=== PATIENT | female | born 1985 | race Asian ===

== ENCOUNTER 2018-12-30 09:38 | Inpatient (IN) | payer OTHER ==
[~2018-12-30] VITALS: Ht 157.5 cm; Wt 66.2 kg
[2018-12-30] MEDS ORDERED: LR 1,000 ML IV ONE (10:26)
[2018-12-30] MEDS ORDERED: CEFAZOLIN 2 GM IVPB PREMIX 50 ML IV ONE (10:30)
[2018-12-30 10:57] LABS: BASOPHILS % (AUTO) 0.2 % (0.0-2.0); EOSINOPHILS % (AUTO) 0.3 % (0.0-4.0); HEMATOCRIT 33.4 % (36-48); HEMOGLOBIN 11.3 g/dL (12.0-16.0); LYMPHOCYTES # (AUTO) 1.1 K/uL (1.0-5.5); LYMPHOCYTES % (AUTO) 16.5 % (20.5-51.5); MEAN CORPUSCULAR HEMOGLOBIN 32 pg (27-31); MEAN CORPUSCULAR HGB CONC 34 % (32-36); MEAN CORPUSCULAR VOLUME 93 fL (79.0-98.0); MONOCYTES # (AUTO) 0.4 K/uL (0.0-1.0); MONOCYTES % (AUTO) 5.5 % (1.7-9.3); NEUTROPHILS # (AUTO) 5.4 K/uL (1.8-7.7); NEUTROPHILS % (AUTO) 77.5 % (40.0-70.0); PLATELET COUNT (AUTO) 228 K/uL (130-430); RED BLOOD CELL COUNT(AUTO) 3.59 MIL/uL (4.2-6.2)
[2018-12-30 11:34] LABS: BILIRUBIN,URINE NEGATIVE (NEGATIVE); BLOOD, URINE NEGATIVE (NEGATIVE); CLARITY/URINE SL HAZY (CLEAR); COLOR,URINE YELLOW (YELLOW); GLUCOSE,URINE NEGATIVE (NEGATIVE); KETONES,URINE 2+ (NEGATIVE); LEUKOCYTE ESTERASE ,URINE NEGATIVE (NEGATIVE); NITRITE, URINE NEGATIVE (NEGATIVE); PROTEIN URINE NEGATIVE (NEGATIVE); UROBILINOGEN,URINE 0.2 (0.2-1.0)
[2018-12-30] MEDS ORDERED: LR 1,000 ML IV.SOLN IV ONE (12:10)
[2018-12-30] MEDS ORDERED: MORPHINE SULFATE 10MG/10ML PF AMP EP ONE (12:10)
[2018-12-30] MEDS ORDERED: TRIAMCINOLONE ACETONIDE 40 MG/ML IM ONE (12:10)
[2018-12-30] MEDS ORDERED: NS IRRIG SOLN 1000 ML IR ONE (12:10)
[2018-12-30] MEDS ORDERED: ePHEDrine sulfate 50 MG/ML VIAL IVP ONE (12:10)
[2018-12-30] MEDS ORDERED: DIPHENHYDRAMINE INJ 50 MG/ML VIAL IVP PRN (12:45)
[2018-12-30] MEDS ORDERED: NALOXONE HCL 0.4 MG/ML AMP (NARCAN) IVP PRN ×2 (12:45)
[2018-12-30] MEDS ORDERED: ONDANSETRON HCL 4 MG/2 ML VIAL IVP PRN (12:45)
[2018-12-30] MEDS ORDERED: KETOROLAC TROMETHAMINE 60 MG/2 ML VIAL IM PRN (12:45)
[2018-12-30] MEDS ORDERED: MORPHINE SULFATE 10MG/10ML PF AMP SP SCH (12:45)
[2018-12-30] MEDS ORDERED: fentaNYL CITRATE/PF 100 MCG/2 ML AMP IVP PRN ×2 (12:45)
[2018-12-30] MEDS ORDERED: NALBUPHINE HCL 10 MG/ML AMP IVP PRN (12:45)
[2018-12-30] MEDS ORDERED: LR 1,000 ML IV SCH (16:40)
[2018-12-30] MEDS ORDERED: OXYTOCIN/0.9 % SODIUM CHLORIDE 1,000 ML IV ONE (16:40)
[2018-12-30] MEDS ORDERED: MEASLES,MUMPS&RUBELLA VACC/PF 12500 UNIT/0.5 ML VIAL SUBQ PRN (16:45)
[2018-12-30] MEDS ORDERED: ANUSOL 1 EA SUPP.RECT (PREPARATION H) RC PRN (16:45)
[2018-12-30] MEDS ORDERED: DIPH-TET-PERTUS Vaccine 0.5 ML VIAL (ADACEL) I.M. PRN (16:45)
[2018-12-30] MEDS ORDERED: LANOLIN 7 GM OINT. TP PRN (16:45)
[2018-12-30] MEDS: CEFAZOLIN 1 GM IVPB PREMIX 50 ML IV SCH (19:42)
[2018-12-30 19:56] VITALS: BP_SYST 122
[2018-12-30] MEDS ORDERED: TEMAZEPAM 15 MG CAPSULE PO PRN (21:00)
[2018-12-31] MEDS: CEFAZOLIN 1 GM IVPB PREMIX 50 ML IV SCH ×2 (02:24→09:11)
[2018-12-31] MEDS ORDERED: OXYCODONE/ACETAMINOPHEN 5-325 TABLET PO PRN ×2 (07:00)
[2018-12-31] MEDS ORDERED: HYDROcodone/ACETAMIN 5-325 MG TAB (NORCO/ VICODIN) PO PRN (07:00)
[2018-12-31 07:29] LABS: BASOPHILS % (AUTO) 0.1 % (0.0-2.0); HEMATOCRIT 30.5 % (36-48); HEMOGLOBIN 10.5 g/dL (12.0-16.0); LYMPHOCYTES # (AUTO) 0.9 K/uL (1.0-5.5); LYMPHOCYTES % (AUTO) 7.7 % (20.5-51.5); MEAN CORPUSCULAR HEMOGLOBIN 32 pg (27-31); MEAN CORPUSCULAR HGB CONC 34 % (32-36); MEAN CORPUSCULAR VOLUME 93 fL (79.0-98.0); MONOCYTES # (AUTO) 0.4 K/uL (0.0-1.0); NEUTROPHILS # (AUTO) 9.8 K/uL (1.8-7.7); NEUTROPHILS % (AUTO) 88.2 % (40.0-70.0); PLATELET COUNT (AUTO) 217 K/uL (130-430); RED BLOOD CELL COUNT(AUTO) 3.29 MIL/uL (4.2-6.2); RED CELL DISTRIBUTION WIDTH 13.7 % (9.0-15.0); WHITE BLOOD COUNT (AUTO) 11.1 K/uL (4.8-10.8)
[2018-12-31] MEDS: DOCUSATE SODIUM 100 MG CAPSULE PO PRN (09:11)
[2018-12-31] MEDS: SIMETHICONE 80 MG TAB.CHEW PO PRN ×3 (09:11→18:35)
[2018-12-31] MEDS: IBUPROFEN 600 MG TABLET PO SCH ×2 (12:26→18:27)
[2019-01-01] MEDS: SIMETHICONE 80 MG TAB.CHEW PO PRN ×3 (00:22→09:20)
[2019-01-01] MEDS: DOCUSATE SODIUM 100 MG CAPSULE PO PRN ×2 (00:22→06:22)
[2019-01-01] MEDS: IBUPROFEN 600 MG TABLET PO SCH ×4 (00:22→18:00)
[2019-01-02] MEDS: SIMETHICONE 80 MG TAB.CHEW PO PRN ×2 (00:25→06:10)
[2019-01-02] MEDS: DOCUSATE SODIUM 100 MG CAPSULE PO PRN ×2 (00:25→06:09)
[2019-01-02] MEDS: IBUPROFEN 600 MG TABLET PO SCH ×2 (00:25→06:09)
== END 2019-01-02 10:50 | disposition home or self-care (01) | DRG 788 ==
LOC: SPU 09:38 → SNS 12-31 21:22 → SPU 12-31 23:46
PROVIDERS: ADMIT Obstetrics & Gynecology; ATTEND Obstetrics & Gynecology
PROC: 10D00Z1 Extraction of Products of Conception, Low, Open Approach (ICD-10-PCS; principal; 2018-12-30 12:00)
DX: O34.211 Maternal care for low transverse scar from previous cesarean delivery (principal); O24.420 Gestational diabetes mellitus in childbirth, diet controlled; Z37.0 Single live birth; Z3A.39 39 weeks gestation of pregnancy
CPT/HCPCS: 36415; 81003; 82947-TC; 85025; 86592; 86886; 86900; 86901; J0690; J2274; J2405; J3301; J7120